=== PATIENT | male | born 1970 | race American Indian/Alaskan Native ===

== ENCOUNTER 2020-05-30 11:28 | Outpatient (CLI) | payer OTHER ==
[2020-06-03 22:51] LABS: CD4/CD8 Ratio 0.62 (0.86-5.00)
== END 2020-05-30 11:29 | disposition home or self-care (01) ==
LOC: LAB 11:28
PROVIDERS: ATTEND Internal Medicine
DX: F43.10 Post-traumatic stress disorder, unspecified (principal); F32.9 Major depressive disorder, single episode, unspecified; B20 Human immunodeficiency virus [HIV] disease; B19.20 Unspecified viral hepatitis C without hepatic coma; R32 Unspecified urinary incontinence
CPT/HCPCS: 36415; 82024